=== PATIENT | male | born 1995 | race Caucasian/White ===

== ENCOUNTER 2019-04-02 01:23 | Emergency (ER) | payer BC ==
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
[2019-04-02 02:37] VITALS: BP 132/84; TEMP 98.5; O2SAT 97
== END 2019-04-02 02:19 | disposition home or self-care (01) ==
LOC: ER 01:23
DX: R51 Headache (principal); V49.40XA Driver injured in collision with unspecified motor vehicles in traffic accident, initial encounter; F17.210 Nicotine dependence, cigarettes, uncomplicated
CPT/HCPCS: 99281